=== PATIENT | female | born 1975 | race Caucasian/White ===

== ENCOUNTER 2016-06-30 11:30 | Day surgery (SDC) | payer OTHER ==
[~2016-06-30] VITALS: Ht 160 cm; Wt 79.9 kg
[2016-06-30] VITALS (10 sets, daily range): BP systolic 116–157; BP diastolic 74–96; PULSE 68–108; RESP 15–20; O2SAT 94–99
[~2016-06-30 11:30] MED LIST: CeFAZolin Inj 2 GM in IV Premix 1 EACH IV ONE; DICL100G8 TOPICAL; FLUO60TA PO; LORA1TAB PO; OXYC1TAB24 PO
[2016-06-30] MEDS ORDERED: Propofol 10,000 mCg/mL 20 mL Inj ONE (11:31)
[2016-06-30] MEDS ORDERED: Ondansetron 2 mg/mL 2 mL Inj ONE (11:31)
[2016-06-30] MEDS ORDERED: fentaNYL-PF 50 mCg/mL 2 mL Inj ONE (11:31)
[2016-06-30] MEDS ORDERED: Rocuronium 10 mg/mL 5 mL Inj ONE (11:31)
[2016-06-30] MEDS ORDERED: Dexamethasone 4 mg/mL Inj ONE (11:31)
[2016-06-30] MEDS ORDERED: CeFAZolin Inj 2 gm / 50mL D5W IV ONE (11:59)
[2016-06-30] MEDS: Lactated Ringer's 1,000 ML IV SCH ×2 (12:07→13:24)
--- NOTE | 2016-06-30 12:22 | PCM.HPANE ---
Patient Data Surgeon Admitting Provider: Attending Provider:Evin Robin MD Primary Care Physician:Katerine Rojas DO Other Provider:Vijayoc,Eden Anesthesia Reason for Visit Left Shoulder Adhesive Capsulitis Ht/WT & BMI Height (Feet): 5 Height (Inches): 3 Weight (Kilograms): 79.9 Body Mass Index 31.00 Allergies Coded Allergies: No Known Allergies (Unverified , 11/28/15) Past Anesthesia History Anesthesia History: Denies:: Anesthesia Reactions, Fam Anesthesia Reaction, Malignant Hyperthermia Diabetes History Hx Diabetes?: No MRSA MRSA: No Medications Home Meds Incl Beta Heidi: No Reported Medications oxyCODONE-Acetaminophen 5-325 mg 1 Each Tablet1 Tab PO Q6H PRN For Pain Ref 0 05/20/16 Lorazepam 1 Mg Tablet1 Mg PO TID PRN For Anxiety Ref 0 05/20/16 Fluoxetine 60 Mg [id number] Mg PO DAILY Ref 0 05/20/16 Discontinued Reported Medications Diclofenac Gel (Voltaren Gel)100 Gm Tube1 Applic TOPICAL QID PRN For Pain #1 TUBE 06/25/16 Diclofenac Epolamine (Flector)1 Each Patch.td121 Each TD DAILY 05/20/16 History History of ENT Problems?: Yes HEENT History: Positive for:: Sinus Problem (hx of rhinitis) Denies:: Hearing Problem Denture Type: Partial- Upper Hx of Heart Problems?: Yes Cardiovascular History: Denies:: Heart Murmur Hypertension (labile- on no meds) Hx of Respiratory Problem?: No Respiratory History: Denies:: Asthma COPD Emphysema Oxygen Administration Pneumonia Tuberculosis Use of C-PAP Machine Use of Inhalers / NEBS Hx Neurologic Problems?: Yes Neurological History: Positive for:: Headaches Other Neurological Pertinent: hx of paresthesia left hand- worked up by neurology assoc with chronic neck pain Hx of GI Problems?: No Gastrointestinal History: Denies:: Gall Bladder Disease Gastroesphageal Reflux Gastrointestinal Bleeding Heartburn Hepatitis Liver Disease Hx of Problems?: No Genitourinary History: Denies:: Kidney Stones Urinary Tract Infection Female Hx: Denies:: Currently (HX TUBAL) Problems with Breasts? Skin History: Denies:: History Skin Disorders? Pressure Ulcers Hx Musculoskeletal Problems?: Yes Musculoskeletal History: Positive for:: Back Injury (chronic neck pain) Degenerative Joint Denies:: Musculoskeletal Trauma (right shoulder adhesive capsulits current problem, scope 11/2015) Hx of Psycho/Social Problems?: Yes Psycho Social History: Positive for:: Anxiety (PANIC ATTACKS) Hx Surgeries?: Yes (C/S X4,REMOVE IUD/LT OOPH./BTL/ADENOLYSIS) Hx Any Other Health Problems?: Yes Other History: Denies:: Cancer Endocrine Disease Hospitalization Thyroid Disease History Blood Transfusions: Positive for:: Accept Blood Products? Denies:: Blood Transfusions Hx Diabetes: No Hx Alcohol Use: NoHx Substance Use: No Smoking Status: Current Every Day Smoker Have You Smoked inLast 12 mo: Yes Stop/Bang S-Snoring: Do You Snore Loudly: No T-Tired: feel tired, fatigued: Yes O-Obsered: Observed not breath: No P-Blood Pressure: treated: No B- Body Mass Index > 35 kg/m2: No A- Age over 50: No N- Neck Large Circumference: No G- Gender Male: No SOCORRO Total Score: 1 SOCORRO Risk Assessment: Low Risk, <3 Yes Risk Assessment Category Category 1A: Patient has history of documented sleep apnea, and HAS NOT received any narcotic, sedative or anesthesia administration during this stay. Category 1B: Patient has history of documented sleep apnea, and HAS received any narcotic , sedative or anesthesia administration during this stay Category 2: Patient has SUSPECTED Obstructive Sleep Apnea, and HAS received any narcotic , sedative or anesthesia administration during this stay. Category 3: Patient has SUSPECTED Obstructive Sleep Apnea and HAS NOT received narcotic, sedative or anesthesia administration during this stay. Category 4: Outpatient in Procedural Areas with known sleep apnea or who screen positive for High Risk via the STOP/BANG questionnaire. Exam Exam Vital Signs Vital Signs Date Time Temp Pulse Resp B/P Pulse Ox O2 Delivery O2 Flow Rate FiO2 06/30/16 12:18 37.0 86 16 131/77 99 Room Air General Appearance: Alert, Oriented X3, Cooperative, No Acute Distress HEENT/AIRWAY: MP 2 Lungs: Clear to Auscultation, Normal Air Movement Heart: Exam Unremarkable, Regular Rate/Rhythm, No Murmurs/Rubs/Gallops Additional Information Artificial teeth, upper incisors. Will avoid contact during anesthesia. Meds/Labs/Diagnostics Admission Meds Current Medications Lactated Ringer's (Lr) 1,000 ml @ 120 mls/hr Q8H20M IV Last administered on t 12:07; Start 06/30/16 at 05:00; Stop 06/30/16 at 13:19 Plan Impression Patient chart reviewed, patient interviewed and anesthestic plan with risks, benefits, and alternatives discussed, and informed consent obtained. NPO Status: 06/29/16 ASA Physical Status: ASA2 Mod Systemic Disease Anesthetic Plan: GA, Regional Block Bene/Risks/Altern/Consents: Yes HP Complete Prior to Induction: Yes Andrés Rice MD Jun 30, 2016 12:22
[2016-06-30] MEDS ORDERED: LORazepam 1 mg Tablet PO ONE (12:25)
[2016-06-30] MEDS ORDERED: HYDROcodone-APAP 5-325 mg Tablet PO PRN (13:25)
[2016-06-30] MEDS ORDERED: Ketorolac 15 mg/mL Inj IVPUSH ONE (13:25)
--- NOTE | 2016-06-30 13:27 | PCM.ORTHOP ---
Orthopedic Operative Report Date of Service: Jun 30, 2016 Pre Operative Diagnosis Left shoulder adhesive capsulitis, acromioclavicular joint arthritis Post Operative Diagnosis Left shoulder adhesive capsulitis, acromioclavicular joint arthritis Procedure Left shoulder manipulation under anesthesia, arthroscopic lysis of adhesions, subacromial decompression, distal clavicle excision Surgeon Surgeon: Evin Robin MD Assistants:Yasmani Goetz Indication for Procedure Left shoulder adhesive capsulitis Findings Left shoulder adhesive capsulitis, small subacromial spur, acromioclavicular joint arthritis Details of Procedure 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 Without the qualified grooming assistant being present, it would have extended the operative procedure and made the procedure technically more difficult to perform. INDICATIONS: The patient is a 40-year-old female who presents with refractory acromioclavicular joint pain and limited motion. The risks, benefits, and alternatives of surgery were discussed with the patient. The risks included but were not limited to infection, bleeding, damage to vessels and nerves, loss of motion, continued pain, complications due to anesthesia including myocardial infarction, stroke, , etc. The patient stated understanding of the nature of the surgical procedure and gave written and verbal consent to proceed. PROCEDURE: The patient was brought into the operating room and placed supine on the operating room table. A interscalene block was placed in the left shoulder for postoperative pain management, followed by the administration of general anesthesia. . The patient was then placed into the lateral decubitus position with the right side up. An axillary role was placed and the legs were padded as necessary to avoid pressure points. The patient was maintained in position with a beanbag evacuation device. A thorough examination of the left shoulder under anesthesia was performed. The manipulation under anesthesia was performed. After manipulation, the patient had 150 degrees of forward elevation and 120 degrees of abduction. In 90 degrees of abduction there was 90 degrees of external rotation and 80 degrees of internal rotation. The shoulder was stable to load-shift testing. The left upper extremity was then prepped and draped in the usual fashion. The arm was suspended with a well-padded sleeve with eight/ten pounds of balanced suspension in the arthroscopic position. Removing A standard posterior portal was made inferior and medial to the posterior corner of the acromion. The incision was made only through skin. The trocar was advanced through the soft tissue with a blunt-tipped obturator. This was inserted into the glenohumeral joint without difficulty. The 4 mm arthroscope was placed through the cannula and attached to the video monitor system. Inflow was achieved using the arthroscopic pump. The pressure was maintained at 35-40 mm of mercury throughout the entire procedure. Once the arthroscope confirmed visualization within the shoulder joint, it was advanced anteriorly into the rotator interval beneath the biceps tendon. A Wissinger genia was then used to create the anterior portal from inside-out. A second anterior stab wound incision was made only through skin and an anterior cannula was placed. A routine arthroscopic survey was begun. Survey: Adhesive capsulitis was noted with scarring of the glenohumeral ligaments and capsule The arm was then placed in the bursoscopy position. Significant synovitis was noted in the glenohumeral and subacromial joint which was debridement with an RF wand and shaver. The RF wand was used to perform a lysis of adhesions surrounding the labrum and glenohumeral ligaments and capsule. Complex surgical procedure: This was an extremely complex surgical procedure which took approximately 30-40 % longer to complete than a standard repair. Without the use of a qualified orthodontic technician assistant, this surgical procedure would have taken even considerably longer and been unable to be performed arthroscopically. Cong procedure: Within the subacromial space there was marked fraying on the undersurface of the coracoacromial ligament consistent with impingement. A decision was thus made to proceed with arthroscopic subacromial decompression. The previous decompression was noted with a small anterior inferior spur. Using an RF wand and a motorized shaver the coracoacromial ligament was recessed from the anterior acromial edge. An orientation trough was made along the lateral margin of the acromion, from the anterior corner back to the posterior margin of the AC joint. A sequential subacromial smoothing was carried out, removing approximately 2 mm of bone corresponding to the preoperative radiographs. Once completed, the AC joint capsule was opened. There was inferior spurring as well as synovitis and arthritic changes at the AC joint with the majority of the external clip. Joint debridement however the posterior superior edge was still noted and a decision was made to proceed with distal clavicle excision. Using a motorized bur working initially from posteriorly and then anteriorly, the outer 12 mm of the distal clavicle were excised. The arthroscope was then positioned anteriorly within the AC resection site confirming an excellent level of resection. The arm was placed through a range of motion and the rotator cuff and humeral head moved well as a unit. There was no further evidence of impingement. The subacromial space was irrigated with an additional liter of lactated Ringer s solution and excess fluid was drained. The arthroscopic portals were closed with #4-0 Nylon and Steri-Strips. A dry sterile dressing was applied, followed by a neutral rotation sling. The patient was awakened in the operating room and transported to the recovery room in satisfactory condition. The patient appeared to tolerate the procedure well. There were no complications noted. Grafts, Implants: None Complications There were no periprocedural complications identified. Condition Stable Anesthetic Administered: GA Catheters: None Output, Estimated Blood Loss: 5 Blood Admin during surgery: No Surgical Specimen Removed: No Specimen sent to Pathology: No copies to: Evin Robin MD, Christopher L MD Jun 30, 2016 13:27 the outer 10 mm of the distal clavicle were excised. The arthroscope was then positioned anteriorly within the AC resection site confirming an excellent level of resection. Calcium removal The subacromial space and lateral bursal surface of the rotator cuff was then debrided using the motorized shaver, removing any loose frayed tissue. The calcium could be seen within the rotator cuff. A spinal needle was used percutaneously just off the lateral acromion. The central stylet was removed, and the rotator cuff was punctured along the bursal surface using the spinal needle to identify the calcific deposit. The calcium was identified within the hub of the needle. The motorized shaver was then used to unroof the calcific deposit. The calcium was visualized as it was expressed from the rotator cuff tendon. The extent of the calcific deposit was circumferentially debrided from medial to lateral and from anterior to posterior. A probe was introduced and the tendon was carefully inspected. There was no further calcium identified. The lateral communication with the tuberosity was exposed, debrided and a microfracture was carried out to aid in a healing response. With the defect present a decision was made to proceed with rotator cuff repair. While visualizing from laterally, a spectrum suture hook was then used from posteriorly to penetrate across the rotator cuff, first posteriorly and then anteriorly. A suture Shuttle Relay system was then used to pass a #1 PDS, #2 Orthocord suture across the rotator cuff tear. The defect in the rotator cuff was then closed using the suture by using a locking sliding knot, followed by alternating half-hitches. Two sutures were placed for this defect, repairing the tendon, closing the defect. Single anchor helix supraspinatus repair Attention was then directed to the rotator cuff repair. Using the motorized shaver from both the anterolateral portal and the posterior portal, the free edge of rotator cuff was debrided. The anatomic neck of the tuberosity was then gently abraded, using the motorized shaver and exposing good bone for healing. Via an accessory anterolateral portal, a triple-loaded anchor was inserted, with excellent fixation purchase. The three stitches were then transported across the rotator cuff using a shuttling technique, spacing the sutures equidistantly. Once the sutures were all passed, they were sequentially tied, using SMC knots and alternating half-hitches, which gave excellent loop and knot security. This reduced the rotator cuff back to the anatomic neck. A microfracture was then performed laterally on the tuberosity creating a crimson duvet to aid in tendon healing. The arm was placed through range of motion and the rotator cuff and humeral head moved well as a unit. There was no further evidence for impingement. The subacromial space was irrigated with an additional 500 mL lactated Ringer solution. Excess fluid was drained. Two anchor helix supraspinatus repair Attention was then directed to the rotator cuff repair. Using the motorized shaver from both the anterolateral portal and the posterior portal, the free edge of rotator cuff was debrided. The anatomic neck of the tuberosity was then gently abraded, using the motorized shaver and exposing good bone for healing. Via an accessory anterolateral portal, two triple-loaded were then inserted with excellent fixation purchase. The 6 stitches from these two anchors were then transported across the rotator cuff spacing the sutures equidistantly. Once the sutures were all passed, they were sequentially tied using SMC knots and alternative half-hitches which gave excellent loop and knot security. This reduced the rotator cuff back to the anatomic neck. A microfracture was then performed laterally on the tuberosity creating a crimson duvet to aid in tendon healing. The arm was then placed through a range of motion. The rotator cuff and humeral head moved well as a unit. There was no further evidence for impingement ARTHROSCOPIC BICEPS TENODESIS Attention was then directed towards biceps tenodesis. With the arthroscope in the lateral viewing portal a motorized shaver was introduced from the anterior working portal, identifying the Mehalik hitch at the top of the bicipital groove. A motorized shaver and VAPR wand was then used inferior from this, debriding the proximal humerus and identifying the falciform ligament. The biceps tendon was then identified and the bicipital sheath was opened using a probe. The groove did reveal evidence of synovitis in this area. With appropriate resting tension maintained using the Mehalik hitch, a percutaneous spinal needle was used to addis the resting position of the biceps tendon, as well as the position for tenodesis at the bottom of the inter-tubercular groove. A blue levi was then used to addis with tendon. An accessory anterior inferior portal was made approximately 6-7 cm from the anterior acromial margin under arthroscopic control. A mwov-ztu-ealryh technique was used to spread the soft tissues down to the level of the bicipital groove. The long head of the biceps was then retrieved using a grasper and the tendon was brought out the wound. A #2 Double loaded Fiberwire Ruddy Net stitch was placed for a length of 1.5 cm from the blue levi marking position in the proximal biceps. This was then sized using the Arthrex biotenodesis set and measured mm. A mm reamer was then selected. A Canuflex cannula was then placed onto the bicipital groove. The biotenodesis guide wire was placed into the proximal humerus at the designated marking position corresponding to the appropriate tension and introduced just to the posterior cortex. The anterior cortex was then reamed using the reamer for a depth of 20 mm. 2 7/64 holes were then created approximately 1.5 cm inferior to the tunnel for suture passing. A Spectrum suture hook was placed through the inferior area relief pilot hole and retrieved out the proximal tunnel. A shuttling technique was carried out passing one suture limb on either side of the long head of the biceps. Tension was then applied to the biceps sutures, reducing and docking the biceps intra-osseously. With the elbow in full extension and the hand in full supination tension was applied to reapproximate the anatomic resting length and the biceps was then secured using an arthroscopic Revo knot, tying the two limbs of the suture together over the biceps tendon. This gave excellent secure fixation. The biceps was then probed and had stable fixation. The arm was placed through a range of motion and the rotator cuff and humeral head moved well as a unit. There was no further evidence of impingement. The subacromial space was irrigated with an additional liter of lactated Ringer s solution and excess fluid was drained. The arthroscopic portals were closed with #4-0 Nylon and Steri-Strips. A dry sterile dressing was applied, followed by a neutral rotation sling. The patient was awakened in the operating room and transported to the recovery room in satisfactory condition. The patient appeared to tolerate the procedure well. There were no complications noted. Grafts, Implants: None Complications There were no periprocedural complications identified. Condition Stable Anesthetic Administered: GA Catheters: None Output, Estimated Blood Loss: 5 Blood Admin during surgery: No Surgical Specimen Removed: No Specimen sent to Pathology: No copies to: Evin Robin MD, Christopher L MD Jun 30, 2016 13:27
[2016-06-30] MEDS ORDERED: Lactated Ringer's 500 ML IV PRN (14:14)
[2016-06-30] MEDS ORDERED: Lactated Ringer's 1,000 ML IV SCH (14:14)
[2016-06-30] MEDS ORDERED: Atropine 0.4 mg/mL Inj IVPUSH PRN (14:15)
[2016-06-30] MEDS ORDERED: MetoCLOpramide 5 mg/mL 2 mL Inj IVPUSH PRN (14:15)
[2016-06-30] MEDS ORDERED: HYDROmorphone 1 mg/mL Inj IVPUSH PRN (14:15)
[2016-06-30] MEDS ORDERED: Ondansetron 2 mg/mL 2 mL Inj IVPUSH PRN (14:15)
[2016-06-30] MEDS ORDERED: hydrALAZINE 20 mg/mL Inj IVPUSH PRN (14:15)
[2016-06-30] MEDS ORDERED: Dexamethasone 4 mg/mL Inj IVPUSH PRN (14:15)
[2016-06-30] MEDS ORDERED: Phenylephrine 10,000 mCg/mL Inj IVPUSH PRN (14:15)
[2016-06-30] MEDS ORDERED: EPHEDrine Sulfate 50 mg/mL Inj IVPUSH PRN (14:15)
[2016-06-30] MEDS ORDERED: Labetalol 5 mg/mL 4 mL Inj IV PRN (14:15)
[2016-06-30] MEDS ORDERED: fentaNYL-PF 50 mCg/mL 2 mL Inj IVPUSH PRN (14:15)
[2016-06-30] MEDS ORDERED: Ropivacaine-PF 0.5% 30 mL Inj INFILTRATE ONE (14:32)
[2016-06-30] MEDS ORDERED: Lactated Ringer's 1,000 ML IV ONE (14:41)
--- NOTE | 2016-06-30 14:55 | PCM.ORTHOP ---
Orthopedic Operative Report Date of Service: Jun 30, 2016 Pre Operative Diagnosis Left shoulder adhesive capsulitis, acromioclavicular joint arthritis Post Operative Diagnosis Left shoulder adhesive capsulitis, acromioclavicular joint arthritis Procedure Left shoulder manipulation under anesthesia, arthroscopic lysis of adhesions, subacromial decompression, distal clavicle excision, extensive debridement of scar tissue Surgeon Surgeon: Evin Robin MD Assistants:Yasmani Goetz Indication for Procedure Left shoulder adhesive capsulitis Findings Left shoulder adhesive capsulitis, small subacromial spur, acromioclavicular joint arthritis Details of Procedure 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 Without the qualified it administrative assistant being present, it would have extended the operative procedure and made the procedure technically more difficult to perform. INDICATIONS: The patient is Abbey Nelson who is a 40-year-old female with left shoulder adhesive capsulitis and acromioclavicular joint pain. The risks, benefits, and alternatives of surgery were discussed with the patient. The risks included but were not limited to infection, bleeding, damage to vessels and nerves, loss of motion, continued pain, complications due to anesthesia including myocardial infarction, stroke, , etc. The patient stated understanding of the nature of the surgical procedure and gave written and verbal consent to proceed. PROCEDURE: The patient was brought into the operating room and placed supine on the operating room table. A interscalene block was placed in the left shoulder for postoperative pain management, followed by the administration of general anesthesia. . The patient was then placed into the lateral decubitus position with the right side up. An axillary role was placed and the legs were padded as necessary to avoid pressure points. The patient was maintained in position with a beanbag evacuation device. A thorough examination of the left shoulder under anesthesia was performed. A manipulation under anesthesia was performed first. The completion of manipulation, the patient had 150 degrees of forward elevation and 1:30 degrees of abduction. In 90 degrees of abduction there was 90 degrees of external rotation and 80 degrees of internal rotation. The shoulder was stable to load- shift testing. The left upper extremity was then prepped and draped in the usual fashion. The arm was suspended with a well-padded sleeve with eight/ten pounds of balanced suspension in the arthroscopic position. Removing A standard posterior portal was made inferior and medial to the posterior corner of the acromion. The incision was made only through skin. The trocar was advanced through the soft tissue with a blunt-tipped obturator. This was inserted into the glenohumeral joint without difficulty. The 4 mm arthroscope was placed through the cannula and attached to the video monitor system. Inflow was achieved using the arthroscopic pump. The pressure was maintained at 35-40 mm of mercury throughout the entire procedure. Once the arthroscope confirmed visualization within the shoulder joint, it was advanced anteriorly into the rotator interval beneath the biceps tendon. A Wissinger genia was then used to create the anterior portal from inside-out. A second anterior stab wound incision was made only through skin and an anterior cannula was placed. A routine arthroscopic survey was begun. Survey: Synovitis was noted in the shoulder joint as well as scarred glenohumeral ligaments. A combination of shaver and RF wand was used to debride the synovitis. An RF wand was used to circumferentially release the labrum from the capsule and glenohumeral ligaments. The arm was then placed in the bursoscopy position. Complex surgical procedure: This was an extremely complex surgical procedure which took approximately 30-40 % longer to complete than a standard repair. Without the use of a qualified certified first assistant, this surgical procedure would have taken even considerably longer and been unable to be performed arthroscopically. Cong procedure: Within the subacromial space there was marked fraying on the undersurface of the coracoacromial ligament consistent with impingement. There was extensive and severe scarring and scar bands which were removed with the RF wand and shaver. A decision was thus made to proceed with arthroscopic subacromial decompression. Using an RF wand and a motorized shaver the coracoacromial ligament was recessed from the anterior acromial edge. An orientation trough was made along the lateral margin of the acromion, from the anterior corner back to the posterior margin of the AC joint. A sequential subacromial smoothing was carried out, removing approximately 2 mm mm of bone corresponding to the preoperative radiographs. Once completed, the AC joint capsule was opened. There was inferior spurring as well as synovitis and arthritic changes at the AC joint and a decision was made to proceed with distal clavicle excision. There were sharp bone edges and the posterior superior distal clavicle was prominent and untouched. Using a motorized bur working initially from posteriorly and then anteriorly, the outer 12 mm of the distal clavicle were excised. The arthroscope was then positioned anteriorly within the AC resection site confirming an excellent level of resection. The arm was placed through a range of motion and the rotator cuff and humeral head moved well as a unit. There was no further evidence of impingement. The subacromial space was irrigated with an additional liter of lactated Ringer s solution and excess fluid was drained. The arthroscopic portals were closed with #4-0 Nylon and Steri-Strips. A dry sterile dressing was applied, followed by a neutral rotation sling. The patient was awakened in the operating room and transported to the recovery room in satisfactory condition. The patient appeared to tolerate the procedure well. There were no complications noted. Grafts, Implants: None Complications There were no periprocedural complications identified. Condition Stable Anesthetic Administered: GA Catheters: None Output, Estimated Blood Loss: 5 Blood Admin during surgery: No Surgical Specimen Removed: No Specimen sent to Pathology: No copies to: Evin Robin MD, Christopher L MD Jun 30, 2016 14:55
--- NOTE | 2016-06-30 15:18 | PCM.ANEP1 ---
Post Anesthesia Phase 1 PACU Phase 1 Assessment Date of Service: Jun 30, 2016 Vital Signs Vital Signs Date Time Temp Pulse Resp B/P Pulse Ox O2 Delivery O2 Flow Rate FiO2 06/30/16 15:00 36.9 108 20 157/96 97 Room Air 06/30/16 12:18 37.0 86 16 131/77 99 Room Air Anesthetic Administered: GA Level of Alertness: Awake, talking URIARTE's with Equal Strength: Yes Pain: No Nausea or Vomiting: No Oxygen Delivery: Room Air Lungs: Clear to Auscultation, Normal Air Movement Dermatome Level: Full Sensation Andrés Rice MD Jun 30, 2016 15:18
--- NOTE | 2016-06-30 15:51 | PCM.ANEP2 ---
Post Anesthesia Evaluation ASA/CMS Post Anesthesia VS in Patient's Normal Range?: Yes Resp Stable; Airway Patent?: Yes CV Function & Hydration Stable: Yes Mental Status Recovered?: Yes Pain control Satisfactory?: Yes N/V Control Satisfactory?: Yes Andrés Rice MD Jun 30, 2016 15:51
== END 2016-06-30 23:59 | disposition home or self-care (01) ==
LOC: SAS 11:30
PROVIDERS: ATTEND Orthopaedic Surgery
DX: M75.02 Adhesive capsulitis of left shoulder (principal); M65.812 Other synovitis and tenosynovitis, left shoulder
CPT/HCPCS: 23700; 29824; 29826; 76942; J0690; J1100; J2250; J2405; J2795; J3010; J7120